=== PATIENT | female | born 1985 | race African-American/Black ===

== ENCOUNTER 2016-08-03 13:53 | Outpatient (CLI) ==
[2015-07-30 09:33] VITALS: BMI 28.3
--- NOTE | 2016-08-03 14:20 | CT ---
EXAM: Noncontrast CT examination of the brain. Comparison: 11/09/2011. Reason for study: Convulsions. FINDINGS: No acute intracranial hemorrhage, mass effect, ventricular dilatation, or territorial inf arction. The prepontine and quadrigeminal cisterns are patent. No extraaxial fluid collection. Th e calvarium is intact. The paranasal sinuses and mastoid air cells are unopacified. There is no ap parent cerebellar ectopia. IMPRESSION: No acute intracranial findings.
== END 2016-08-03 13:54 | disposition home or self-care (01) ==
LOC: RAD 13:53
PROVIDERS: ATTEND Nurse Practitioner Family
DX: R56.9 Unspecified convulsions (principal); R55 Syncope and collapse

== ENCOUNTER 2016-08-07 13:00 | Outpatient (CLI) ==
[2015-07-30 09:33] VITALS: BMI 28.3
== END 2016-08-07 13:01 | disposition home or self-care (01) ==
LOC: CAR 13:00
PROVIDERS: ATTEND Nurse Practitioner Family
DX: R56.9 Unspecified convulsions (principal); R55 Syncope and collapse

== ENCOUNTER 2016-09-07 13:50 | Outpatient (CLI) ==
[2015-07-30 09:33] VITALS: BMI 28.3
== END 2016-09-07 13:51 | disposition home or self-care (01) ==
LOC: LAB 13:50
PROVIDERS: ATTEND Nurse Practitioner Family
DX: M79.674 Pain in right toe(s) (principal)
CPT/HCPCS: 36415; 84550

== ENCOUNTER 2016-09-18 13:24 | Outpatient (CLI) ==
[2015-07-30 09:33] VITALS: BMI 28.3
--- NOTE | 2016-09-18 16:11 | MRI ---
EXAM: MRI right foot without contrast. HISTORY: Pain right foot. First toe pain. Limited range of motion.. TECHNIQUE: Using a local extremity coil on a high field strength magnet multiplanar multisequence m agnet resonance imaging performed of the right mid to forefoot without intravenous or intra-articula r gadolinium contrast.. FINDINGS: I do not have prior radiographs of the right foot for comparison at the time of this dict ation. The alignment of the right mid to forefoot shows no dislocation or joint subluxations. Intact Lisfr anc ligament fibers. Bone marrow signal intensity shows no acute fracture, stress fracture or bone erosions. Trace first metatarsal phalangeal joint effusion. Mild osteoarthrosis right great toe. Trace inter metatarsal bursitis. The dorsal extensor and plantar flexor tendons grossly intact with out tenosynovitis. Muscle bulk shows normal signal intensity. The visualized plantar fascia intact .. IMPRESSION: No acute fracture/stress fracture. Trace first metatarsal phalangeal joint effusion. Mild osteoarthrosis right great toe. Trace inter metatarsal bursitis. No bone erosions or joint subluxations. No tenosynovitis. Recommendation is obtainment and correlation with plain film radiographs of the right toes as none a re available for comparison at the time of this dictation.
== END 2016-09-18 13:25 | disposition home or self-care (01) ==
LOC: RAD 13:24
PROVIDERS: ATTEND Nurse Practitioner Family
DX: M79.671 Pain in right foot (principal)

== ENCOUNTER 2016-10-05 08:21 | Emergency (ER) ==
[2016-10-05 08:28] VITALS: BP 133/76; TEMP 97; BMI 27.6
--- NOTE | 2016-10-05 08:47 | ED.PDOC ---
General ED Provider: Dr. TIARA MARX JR Chief Complaint: Respiratory Complaint Stated Complaint: sore throat-- coughing headache--fever--body aches--chills-- 102 at home[End]97.0 101 20 98% 133/76 12/30 multi-sx cough/cold med Time Seen by Physician: 08:47 Mode of Arrival: Walk-In Information Source: Patient Exam Limitations: No limitations Primary Care Provider: GIANNI DOSS Nursing and Triage Documentation Reviewed and Agree: No Review of Systems - Review Of Systems Constitutional: Reports: Chills, Malaise, Weakness Eyes: Reports: No symptoms Ears, Nose, Mouth, Throat: Reports: Nose pain, Nose discharge, Throat pain Respiratory: Reports: Cough Cardiac: Reports: No symptoms GI: Reports: No symptoms : Reports: No symptoms Musculoskeletal: Reports: No symptoms Skin: Reports: No symptoms Neurological: Reports: No symptoms Endocrine: Reports: No symptoms Hematologic/Lymphatic: Reports: No symptoms All Other Systems: Other Past Medical History - Past Medical History Previously Healthy: Yes Endocrine: Reports: None Cardiovascular: Reports: None Respiratory: Reports: None Hematological: Reports: None Gastrointestinal: Reports: None Genitourinary: Reports: None Neuro/Psych: Reports: None Musculoskeletal: Reports: Back Pain, Joint Pain, Other Cancer: Reports: None Last Menstrual Period: aug 23 - Surgical History General Surgical History: Reports: Tubal ligation, Tonsillectomy - Family History Family History: Reports: Unknown - Social History Smoking Status: Former smoker Hx Substance Use: Yes (lortab in past) Alcohol Screening: None Physical Exam - Physical Exam Appearance: Ill-appearing, Thin Ill-appearing: Moderate Pain Distress: Moderate Eyes: SINDHU, EOMI, Conjunctiva clear ENT: Ears normal, Oropharynx normal, Rhinorrhea Neck: Supple Respiratory: Airway patent, Breath sounds clear, Breath sounds equal, Respirations nonlabored Cardiovascular: RRR, Pulses normal, No rub, No murmur GI/: Soft, Nontender, No masses, Bowel sounds normal, No Organomegaly Musculoskeletal: Normal strength, ROM intact, No edema, No calf tenderness Skin: Warm, Dry, Normal color Neurological: Sensation intact, Motor intact, Reflexes intact, Cranial nerves intact, Alert, Oriented Critical Care Note - Critical Care Note Total Time (mins): 0 Course - Course Orders, Labs, Meds: Lab Review 10/05/16 08:30 Influenza A (Rapid) Negative Influenza B (Rapid) Negative Orders Category Date Time Status MOLECULAR GROUP A STREP Stat LAB 10/05/16 08:30 Results RAPID FLU A/B Stat LAB 10/05/16 08:30 Completed RAPID STREP SCREEN [STREP SCREEN] Stat LAB 10/05/16 08:30 Results Vital Signs: Temp Pulse Resp BP Pulse Ox 10/05/16 08:22 97 F L 101 H 20 133/76 98 Departure - Departure Time of Disposition: 09:13 Disposition: HOME SELF-CARE Discharge Problem: Acute viral syndrome Instructions: Viral Syndrome (ED), Upper Respiratory Infection (ED) Condition: Good Pt referred to PMD for follow-up: Yes Additional Instructions: RECHECK PMD ONE WEEK IF NOT RESOLVED RETURN IF WORSENING IF FEVER OVER 101.0 AVOID OTHERS UNTIL NO FEVER FOR 12-24 HOURS WOULD AVOID CHILDREN UNTIL IMPROVING TYLENOL AND MOTRIN FOR FEVER OR DISCOMFORT ROBITUSSIN DM OR ROBITUSSIN AC FOR COUGH MAY USE ANY ANTIHISTAMINE DECONGESTANT FOR SYMPTOMS STREP AND FLU ARE NEGATIVE- KEFLEX IS ONLY TO BE USED FOR POSITIVE STREP TEST Prescriptions: Naproxen [Naprosyn] 500 mg PO Q12HR PRN #30 tablet PRN Reason: PAIN Cephalexin [Keflex] 500 mg PO QID #40 capsule Guaifenesin/Codeine Phosphate [Robitussin AC Syrup] 10 ml PO Q6H PRN #240 ml PRN Reason: Cough Loratadine/Pseudoephedrine [Claritin-D 12 Hour Tablet] 1 each PO BID PRN #60 tab.er.12h PRN Reason: Allergy Symptoms Allergies/Adverse Reactions: Allergies No Known Allergies Allergy (Verified 10/05/16 08:30) Home Medications: Ambulatory Orders Dextroamphetamine/Amphetamine [Adderall 30 mg Tablet] 30 mg PO 3 TIMES PER WEEK PRN 07/30/15 Clonazepam [Klonopin] 0.5 mg PO QID #120 06/01/16 Dextroamphetamine/Amphetamine [Adderall 30 Mg Tablet] 30 mg PO TID #75 Escitalopram Oxalate [Lexapro] 10 mg PO DAILY #45 06/01/16 Cephalexin [Keflex] 500 mg PO QID #40 capsule 10/05/16 Guaifenesin/Codeine Phosphate [Robitussin AC Syrup] 10 ml PO Q6H PRN #240 ml Loratadine/Pseudoephedrine [Claritin-D 12 Hour Tablet] 1 each PO BID PRN #60 tab.er.12h 10/05/16 Naproxen [Naprosyn] 500 mg PO Q12HR PRN #30 tablet 10/05/16
[2016-10-05 08:58] LABS: FLU INTERNAL QC INTERNAL QC VALID; RAPID FLU A NEGATIVE (NEGATIVE); RAPID FLU B NEGATIVE (NEGATIVE)
== END 2016-10-05 09:50 | disposition home or self-care (01) ==
LOC: ED 08:21
DX: B34.9 Viral infection, unspecified (principal); J06.9 Acute upper respiratory infection, unspecified
CPT/HCPCS: 87651; 87804; 87880; 99282

== ENCOUNTER 2017-02-13 11:46 | Emergency (ER) ==
[2017-02-13 11:51] VITALS: BP 127/88; TEMP 98.5
[2017-02-13] MEDS ORDERED: TORADOL IM STA (12:47)
[2017-02-13] MEDS ORDERED: VALIUM SYRINGE IM STA (12:47)
--- NOTE | 2017-02-13 12:55 | ED.PDOC ---
General ED Provider: Dr. DARIAN CASTILLO Chief Complaint: Tooth Problem Stated Complaint: DENTAL PAIN Time Seen by Physician: 12:15 (SEEN WITH STAFF) Mode of Arrival: Walk-In Information Source: Family Exam Limitations: No limitations Primary Care Provider: GIANNI DOSS Nursing and Triage Documentation Reviewed and Agree: Yes EENT Complaint Exam - Dental/Oral Complaint/Exam Mechanism of Injury: No known trauma Symptoms Are: Still present Timing: Constant Initial Severity: Moderate Current Severity: Moderate Character: Reports: Aching Aggravating: Reports: None Alleviating: Reports: None Associated Signs and Symptoms: Denies: Swelling, Discharge, Fever, Foul odor, Foul taste in mouth Related History: Reports: Similar episode Cardiac Risk Factors: Reports: None Dental/Oral Surgical History: Reports: None Cervical Lymphadenopathy Present: No Facial Swelling Present: No Bleeding Present: No Oropharynx Findings: Absent: Clots, Active bleeding Septal Hematoma: No Foreign Body Present: No Dysphagia Present: No Drooling Present: No Asymmetrical Tonsillar Swelling Present: No Uvula Midline: Yes Radha-tonsillar Fluctuence: No Trismus Present: No Palatal Petechiae Present: No Scarlatinaform Rash Present: No Teeth Picture: 1 - PAIN Differential Diagnoses: Other (WISDOM TOOTH ISSUE) Review of Systems - Review Of Systems Constitutional: Reports: No symptoms Eyes: Reports: No symptoms Ears, Nose, Mouth, Throat: Reports: No symptoms Respiratory: Reports: No symptoms Cardiac: Reports: No symptoms GI: Reports: No symptoms : Reports: No symptoms Musculoskeletal: Reports: No symptoms Skin: Reports: No symptoms Neurological: Reports: No symptoms Endocrine: Reports: No symptoms Hematologic/Lymphatic: Reports: No symptoms All Other Systems: Reviewed and Negative Past Medical History - Past Medical History Previously Healthy: Yes Endocrine: Reports: None Cardiovascular: Reports: None Respiratory: Reports: None Hematological: Reports: None Gastrointestinal: Reports: None Genitourinary: Reports: None Neuro/Psych: Reports: None Musculoskeletal: Reports: Back Pain, Joint Pain, Other Cancer: Reports: None Last Menstrual Period: december 25 - Surgical History General Surgical History: Reports: Tubal ligation, Tonsillectomy - Family History Family History: Reports: Unknown - Social History Smoking Status: Former smoker Hx Substance Use: No Alcohol Screening: None Physical Exam - Physical Exam Appearance: Well-appearing, No pain distress, Well-nourished Eyes: SINDHU, EOMI, Conjunctiva clear ENT: Ears normal, Nose normal, Oropharynx normal Respiratory: Airway patent, Breath sounds clear, Breath sounds equal, Respirations nonlabored Cardiovascular: RRR, Pulses normal, No rub, No murmur GI/: Soft, Nontender, No masses, Bowel sounds normal, No Organomegaly Musculoskeletal: Normal strength, ROM intact, No edema, No calf tenderness Skin: Warm, Dry, Normal color Neurological: Sensation intact, Motor intact, Reflexes intact, Cranial nerves intact, Alert, Oriented Psychiatric: Affect appropriate, Mood appropriate Critical Care Note - Critical Care Note Total Time (mins): 0 Course - Course Orders, Labs, Meds: Orders Category Date Time Status Diazepam Syringe [Valium Syringe] MEDS 02/13/17 12:47 Stat 2 mg IM ONCE STA Ketorolac Tromethamine [Toradol] MEDS 02/13/17 12:47 Stat 30 mg IM ONCE STA Medications Discontinued Medications Generic Name Dose Route Start Last Admin Trade Name Freq PRN Reason Stop Dose Admin Diazepam 2 mg 02/13/17 12:47 Valium Syringe IM 02/13/17 12:48 ONCE STA Ketorolac Tromethamine 30 mg 02/13/17 12:47 Toradol IM 02/13/17 12:48 ONCE STA Vital Signs: Temp Pulse Resp BP Pulse Ox 02/13/17 11:47 98.5 F 92 H 20 127/88 98 Departure - Departure Time of Disposition: 12:55 Disposition: HOME SELF-CARE Discharge Problem: Toothache Instructions: Toothache (ED) Condition: Good Pt referred to PMD for follow-up: Yes Additional Instructions: Please call your Family Physician as soon as possible to schedule a follow-up appointment. Prescriptions: Hydrocodone/Acetaminophen [Felton 10-325 Tablet] 1 each PO Q8HR #14 tablet Diazepam [Valium] 5 mg PO Q12H #6 tablet Allergies/Adverse Reactions: Allergies meloxicam Allergy (Verified 02/13/17 11:53) Nausea Home Medications: Ambulatory Orders Dextroamphetamine/Amphetamine [Adderall 30 mg Tablet] 30 mg PO 3 TIMES PER WEEK PRN 07/30/15 Escitalopram Oxalate [Lexapro] 10 mg PO DAILY #45 06/01/16 Naproxen [Naprosyn] 500 mg PO Q12HR PRN #30 tablet 10/05/16 Trazodone HCl 100 mg PO BEDTIME #30 11/16/16 Acetaminophen 325 mg PO Q4HR PRN 01/08/17 Clonazepam 0.5 mg PO DIRECTED PRN 01/08/17 Dextroamphetamine/Amphetamine [Adderall 30 Mg Tablet] 30 mg PO DIRECTED 01/08 Ibuprofen 200 mg PO Q6HR PRN 01/08/17 Diazepam [Valium] 5 mg PO Q12H #6 tablet 02/13/17 Hydrocodone/Acetaminophen [Felton 10-325 Tablet] 1 each PO Q8HR #14 tablet
== END 2017-02-13 13:17 | disposition home or self-care (01) ==
LOC: ED 11:46
DX: K08.89 Other specified disorders of teeth and supporting structures (principal)
CPT/HCPCS: 96372; 99282

== ENCOUNTER 2017-10-15 12:26 | Emergency (ER) ==
[2017-10-15 12:31] VITALS: BP 135/90; TEMP 96.7; BMI 31.1
[2017-10-15] MEDS ORDERED: DILAUDID 1 MG/ML SYRINGE IM STA (13:37)
--- NOTE | 2017-10-15 13:50 | ED.PDOC ---
General ED Provider: Dr. DARIAN CASTILLO Chief Complaint: Headache Stated Complaint: HEADACHE Time Seen by Physician: 12:30 (SEEN WITH MATT AT ALL TIMES NO NEURO DEFICITS NEGATIVE TRAUMA REPORTED ) Mode of Arrival: Walk-In Information Source: Patient Primary Care Provider: GIANNI DOSS Nursing and Triage Documentation Reviewed and Agree: Yes Reviewed sepsis parameters & appropriate labs ordered?: Yes System Inflammatory Response Syndrome: Not Applicable Sepsis Protocol: For patient's 13 years and over: Temp is 96.8 and below OR 101 and greater Pulse >90 BPM Resp >20/minute Acutely Altered Mental Status Are patient's symptoms suggestive of a new infection, such as: -Pneumonia -Skin, Soft Tissue -Endocarditis -UTI -Bone, Joint Infection -Implantable Device -Acute Abdominal Infection -Wound Infection -Meningitis -Blood Stream Catheter Infection -Unknown System Inflammatory Response Syndrome: Not Applicable Neurological Complaint Exam - Headache Complaint/Exam Onset: Gradual Duration: 2 DAYS DIFFUSE HEADACHE Symptoms Are: Still present Timing: Constant Episodes Lasting: Days Worst Headache Ever: No Initial Severity: Moderate Current Severity: Moderate Location: Frontal, Temporal Character: Reports: Typical headache Aggravating: Reports: None Alleviating: Reports: None Associated Signs and Symptoms: Reports: Nausea. Denies: Dizziness, Seizure, Vomiting, Sinus pressure, Fever, Neck pain, Neck stiffness, Decreased LOC, Visual changes Related History: Reports: Similar episode Related Surgical History: Reports: None SAH Risk Factors: Reports: -brazilian Meningitis Risk Factors: Reports: None SDH Risk Factors: Reports: None Temporal Arteritis Risk Factors: Reports: None Normal Head CT Within Last 12 Months: No Fundoscopic Exam: Present: Normal Findings Papilledema Present: No Temporal Artery Tenderness: Present: None Sinus Tenderness: Present: None TMJ Tenderness: Present: None Glascow Coma Scale (see protocol): 15 Meningeal Signs Positive: No Pain on Passive Flexion-Positive Kernig's: No ROM Limited In: No Limitiations Focal Weakness: Present: None Focal Sensory Loss: Present: None Nystagmus Present: No Gag Reflex Present: Yes Differential Diagnoses: Migraine Review of Systems - Review Of Systems Constitutional: Reports: No symptoms Eyes: Reports: No symptoms Ears, Nose, Mouth, Throat: Reports: No symptoms Respiratory: Reports: No symptoms Cardiac: Reports: No symptoms GI: Reports: No symptoms : Reports: No symptoms Musculoskeletal: Reports: No symptoms Skin: Reports: No symptoms Neurological: Reports: Headache Endocrine: Reports: No symptoms Hematologic/Lymphatic: Reports: No symptoms All Other Systems: Reviewed and Negative Past Medical History - Past Medical History Previously Healthy: Yes Endocrine: Reports: None Cardiovascular: Reports: None Respiratory: Reports: None Hematological: Reports: None Gastrointestinal: Reports: None Genitourinary: Reports: None Neuro/Psych: Reports: None Musculoskeletal: Reports: Back Pain, Joint Pain, Other Cancer: Reports: None Last Menstrual Period: 3 days ago - Surgical History General Surgical History: Reports: Tubal ligation, Tonsillectomy - Family History Family History: Reports: Unknown - Social History Smoking Status: Former smoker Hx Substance Use: No Alcohol Screening: None Physical Exam - Physical Exam Appearance: Well-appearing, No pain distress, Well-nourished Eyes: SINDHU, EOMI, Conjunctiva clear ENT: Ears normal, Nose normal, Oropharynx normal Respiratory: Airway patent, Breath sounds clear, Breath sounds equal, Respirations nonlabored Cardiovascular: RRR, Pulses normal, No rub, No murmur GI/: Soft, Nontender, No masses, Bowel sounds normal, No Organomegaly Musculoskeletal: Normal strength, ROM intact, No edema, No calf tenderness Skin: Warm, Dry, Normal color Neurological: Sensation intact, Motor intact, Reflexes intact, Cranial nerves intact, Alert, Oriented Psychiatric: Affect appropriate, Mood appropriate Interpretation - Radiology Interpretation Radiology Interpretation By: Radiologist Radiology Results: No acute changes Critical Care Note - Critical Care Note Total Time (mins): 0 Course - Course Hematology/Chemistry: 10/15/17 13:47 10/15/17 13:47 Orders, Labs, Meds: Lab Review 10/15/17 10/15/17 10/15/17 13:47 13:47 13:47 WBC 8.19 RBC 4.30 Hgb 12.8 Hct 38.2 MCV 88.8 MCH 29.8 MCHC 33.5 RDW Coeff of Edgar 12.2 Plt Count 264 Immature Gran % (Auto) 0.2 Neut % (Auto) 62.6 Lymph % (Auto) 23.4 Yancey % (Auto) 7.4 Eos % (Auto) 5.9 Baso % (Auto) 0.5 Immature Gran # (Auto) 0.0 Neut # (Auto) 5.1 Lymph # (Auto) 1.9 Yancey # (Auto) 0.6 Eos # (Auto) 0.5 Baso # (Auto) 0.0 Sodium 141 Potassium 4.1 Chloride 107 Carbon Dioxide 23 Anion Gap 15.1 BUN 10 Creatinine 0.79 Estimated GFR (MDRD) 101.00 BUN/Creatinine Ratio 12.65 Glucose 81 Calcium 9.7 Total Bilirubin 0.3 AST 17 ALT 12 Alkaline Phosphatase 84 Total Protein 7.8 Albumin 3.8 Globulin 4.0 Albumin/Globulin Ratio 0.95 Serum , Qual Negative Orders Category Date Time Status CBC W/ AUTO DIFF Stat LAB 10/15/17 13:47 Completed COMPREHENSIVE METABOLIC PANEL Stat LAB 10/15/17 13:47 Completed SERUM Stat LAB 10/15/17 13:47 Completed Hydromorphone HCl [Dilaudid 1 mg/ml Syringe] MEDS 10/15/17 13:37 Discontinued 0.5 mg IM ONCE STA CT HEAD W/O CONTRAST Stat RADS 10/15/17 13:35 Completed Medications Discontinued Medications Generic Name Dose Route Start Last Admin Trade Name Freq PRN Reason Stop Dose Admin Hydromorphone HCl 0.5 mg 10/15/17 13:37 10/15/17 13:43 Dilaudid 1 Mg/Ml Syringe IM 10/15/17 13:38 0.5 mg ONCE STA Administration Vital Signs: Temp Pulse Resp BP Pulse Ox 10/15/17 12:26 96.7 F L 61 18 135/90 98 Departure - Departure Time of Disposition: 15:03 Disposition: HOME SELF-CARE Discharge Problem: Headache Instructions: Acute Headache (ED) Condition: Good Pt referred to PMD for follow-up: Yes IPMP verified?: No Additional Instructions: Please call your Family Physician as soon as possible to schedule a follow-up appointment. Allergies/Adverse Reactions: Allergies meloxicam Allergy (Verified 10/15/17 12:31) Nausea Home Medications: Ambulatory Orders Ibuprofen 200 mg PO Q6HR PRN 01/08/17 Disposition Discussed With: Patient
--- NOTE | 2017-10-15 14:46 | CT ---
EXAM: CT of the head without contrast History: Headache. Comparison: Head CT 08/03/2016 Technique: Multiplanar CT images through the head were obtained without the administration of IV con trast Findings: Mucosal thickening and fluid seen within the paranasal sinuses. Mastoid air cells are jim ar in general. No acute calvarial abnormalities. Intracranially the ventricular and cisternal spaces are normal in size, shape and configuration for a patient of this age. No dominant mass or midline shift. No hydrocephalous. No acute intracranial hemorrhage or abnormal extraaxial fluid collections. Impression: 1. No acute intracranial process. 2. Paranasal sinusitis
== END 2017-10-15 15:11 | disposition home or self-care (01) ==
LOC: ED 12:26
DX: R51 Headache (principal)
CPT/HCPCS: 36415; 80053; 84703; 85025; 96372; 99283

== ENCOUNTER 2018-02-02 11:20 | Emergency (ER) | payer OTHER ==
[2018-02-02 11:30] VITALS: BP 115/74; TEMP 98.5
== END 2018-02-02 12:00 | disposition left against medical advice (07) ==
LOC: ED 11:20
DX: M54.42 Lumbago with sciatica, left side (principal)

== ENCOUNTER 2018-02-21 11:58 | Emergency (ER) ==
[2018-02-21 12:02] VITALS: BP 120/75; TEMP 98; BMI 27.4
--- NOTE | 2018-02-21 12:24 | ED.PDOC ---
General ED Provider: Dr. 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 ) Sepsis Protocol: For patient's 13 years and over: Temp is 96.8 and below OR 101 and greater Pulse >90 BPM Resp >20/minute Acutely Altered Mental Status Are patient's symptoms suggestive of a new infection, such as: -Pneumonia -Skin, Soft Tissue -Endocarditis -UTI -Bone, Joint Infection -Implantable Device -Acute Abdominal Infection -Wound Infection -Meningitis -Blood Stream Catheter Infection -Unknown Musculoskeletal Complaint Exam - Back Pain Complaint/Exam Mechanism of Injury: Reports: No known trauma Onset/Duration: 1 day Symptoms Are: Still present Timing: Constant Episodes Lasting: Hours Initial Severity: Moderate Current Severity: Moderate Location: Reports: Radiating (left leg) Character: Reports: Aching, Spasmodic Aggravating: Reports: Movements Alleviating: Reports: Rest Associated Signs and Symptoms: Denies: Swelling, Redness, Bruising, Fever, Weakness, Numbness, Tingling, Abdominal pain, Flank pain, Bladder incontinence, Bowel incontinence, Weight loss, Pain with weight bearing Related History: Reports: Similar episode TAD Risk Factors: Reports: None AAA Risk Factors: Reports: None Cauda Equina Risk Factors: Reports: None Epidural Abcess Risk Factors: Reports: None Related Surgical History: Reports: None Focal Tenderness: No Paraspinal Muscle Tenderness: No Paraspinal Muscle Spasm: No Scoliosis: No Lordosis: No Kyphosis: No SLR Test: Right Negative, Left Negative Hip Motion Testing Pain: Right Negative, Left Negative Focal Weakness: Present: None Focal Sensory Loss: Present: None Gait: Present: Normal Differential Diagnoses: Strain, Sprain Review of Systems - Review Of Systems Constitutional: Reports: No symptoms Eyes: Reports: No symptoms Ears, Nose, Mouth, Throat: Reports: No symptoms Respiratory: Reports: No symptoms Cardiac: Reports: No symptoms GI: Reports: No symptoms : Reports: No symptoms Musculoskeletal: Reports: Back pain Skin: Reports: No symptoms Neurological: Reports: No symptoms Endocrine: Reports: No symptoms Hematologic/Lymphatic: Reports: No symptoms All Other Systems: Reviewed and Negative Past Medical History - Past Medical History Previously Healthy: Yes Endocrine: Reports: None Cardiovascular: Reports: None Respiratory: Reports: None Hematological: Reports: None Gastrointestinal: Reports: None Genitourinary: Reports: None Neuro/Psych: Reports: None Musculoskeletal: Reports: Back Pain, Joint Pain, Other Cancer: Reports: None Last Menstrual Period: 02/21/18 - Surgical History General Surgical History: Reports: Tubal ligation, Tonsillectomy - Family History Family History: Reports: Unknown - Social History Smoking Status: Former smoker Hx Substance Use: No Alcohol Screening: None - Immunizations Tetanus Shot up to Date: Yes Physical Exam - Physical Exam Appearance: Well-appearing, No pain distress, Well-nourished Eyes: SINDHU, EOMI, Conjunctiva clear ENT: Ears normal, Nose normal, Oropharynx normal Respiratory: Airway patent, Breath sounds clear, Breath sounds equal, Respirations nonlabored Cardiovascular: RRR, Pulses normal, No rub, No murmur GI/: Soft, Nontender, No masses, Bowel sounds normal, No Organomegaly Musculoskeletal: Normal strength, ROM intact, No edema, No calf tenderness Skin: Warm, Dry, Normal color Neurological: Sensation intact, Motor intact, Reflexes intact, Cranial nerves intact, Alert, Oriented Psychiatric: Affect appropriate, Mood appropriate Critical Care Note - Critical Care Note Total Time (mins): 0 Course - Course Vital Signs: Temp Pulse Resp BP Pulse Ox 02/21/18 11:59 98.0 F 101 H 16 120/75 98 Departure - Departure Time of Disposition: 12:24 Disposition: HOME SELF-CARE Discharge Problem: Backache Low back pain Qualifiers: Chronicity: acute Back pain laterality: left Sciatica laterality: sciatica of left side Instructions: Sciatica (ED), Acute Low Back Pain (ED) Condition: Good Pt referred to PMD for follow-up: Yes IPMP verified?: No Additional Instructions: Please call your Family Physician as soon as possible to schedule a follow-up appointment. Allergies/Adverse Reactions: Allergies meloxicam Allergy (Verified 02/21/18 12:02) Nausea Home Medications: Ambulatory Orders 1 [No Reported Medications] 02/21/18
== END 2018-02-21 12:30 | disposition home or self-care (01) ==
LOC: ED 11:58
DX: M54.9 Dorsalgia, unspecified (principal)
CPT/HCPCS: 99282

== ENCOUNTER 2018-12-29 09:25 | Emergency (ER) ==
[2018-12-29 09:34] VITALS: BP 153/77; TEMP 97; BMI 29.2
--- NOTE | 2018-12-29 10:41 | CT ---
Exam: CT of the abdomen and pelvis without contrast History: Flank pain Technique: [address] of the abdomen and pelvis without intravascular contrast FINDINGS: The lung bases are clear. No significant liver abnormality. The adrenals, pancreas and s pleen are unremarkable. The stomach and hiatus are unremarkable.The gallbladder appears normal. Kid neys and proximal collecting system are unremarkable. There is a 2.5 mm calculus suspected within th e right mid ureter. The appendix is normal. Bowel loops demonstrate normal caliber. No inflamatory change seen in the mesentery or retroperitoneum. Pelvic genitourinary structures appear normal. Pelvic bowel loops are unremarkable. No inflammatory change in the pelvic fat. No acute abnormality of the abdominal or pelvic skeleton. Impression: 1. Right mid ureteral calculus measuring about 2.5 mm. There is no associated hydronephrosis, hydro ureter or inflammation. 2. Negative exam otherwise.
--- NOTE | 2018-12-29 10:47 | ED.PDOC ---
General ED Provider: Dr. OUSMANE OSMAN-ER Chief Complaint: Abdominal Pain Stated Complaint: corinna been hurting for 3 days Time Seen by Physician: 09:30 Mode of Arrival: Walk-In Information Source: Patient Exam Limitations: No limitations Primary Care Provider: SPEEDY SINGLETARY Nursing and Triage Documentation Reviewed and Agree: Yes Does patient meet sepsis criteria?: No System Inflammatory Response Syndrome: Not Applicable Sepsis Protocol: For patient's 13 years and over: Temp is 96.8 and below OR 101 and greater Pulse >90 BPM Resp >20/minute Acutely Altered Mental Status Are patient's symptoms suggestive of a new infection, such as: -Pneumonia -Skin, Soft Tissue -Endocarditis -UTI -Bone, Joint Infection -Implantable Device -Acute Abdominal Infection -Wound Infection -Meningitis -Blood Stream Catheter Infection -Unknown Complaint Exam - Complaint/Exam Patient Complains of: Reports: Pain Onset/Duration: 3 days Symptoms Are: Still present Timing: Constant Initial Severity: Mild Current Severity: Moderate Location of Pain: Reports: Discrete, Right, Flank Character: Reports: Colicky Associated Signs and Symptoms: Reports: Back pain, Nausea Abdominal Findings: Present: None Differential Diagnoses: Ureteral Stone Review of Systems - Review Of Systems Constitutional: Reports: No symptoms Eyes: Reports: No symptoms Ears, Nose, Mouth, Throat: Reports: No symptoms Respiratory: Reports: No symptoms Cardiac: Reports: No symptoms GI: Reports: Abdominal pain : Reports: Flank pain Musculoskeletal: Reports: No symptoms Skin: Reports: No symptoms Neurological: Reports: No symptoms Endocrine: Reports: No symptoms Hematologic/Lymphatic: Reports: No symptoms All Other Systems: Reviewed and Negative Past Medical History - Past Medical History Previously Healthy: Yes Endocrine: Reports: None Cardiovascular: Reports: None Respiratory: Reports: None Hematological: Reports: None Gastrointestinal: Reports: None Genitourinary: Reports: None Neuro/Psych: Reports: None Musculoskeletal: Reports: Back Pain, Joint Pain, Other Cancer: Reports: None Last Menstrual Period: 1 1/2 week ago - Surgical History General Surgical History: Reports: Tubal ligation, Tonsillectomy - Family History Family History: Reports: Unknown - Social History Smoking Status: Former smoker Hx Substance Use: No Alcohol Screening: None - Immunizations Tetanus Shot up to Date: No Physical Exam - Physical Exam Appearance: Well-appearing, No pain distress, Well-nourished Pain Distress: Moderate Eyes: SINDHU, EOMI, Conjunctiva clear ENT: Ears normal, Nose normal, Oropharynx normal Neck: Supple Respiratory: Airway patent, Breath sounds clear, Breath sounds equal, Respirations nonlabored Cardiovascular: RRR, Pulses normal, No rub, No murmur GI/: Soft, Nontender, No masses, Bowel sounds normal, No Organomegaly Musculoskeletal: Normal strength, ROM intact, No edema, No calf tenderness Skin: Warm, Dry, Normal color Neurological: Sensation intact, Motor intact, Reflexes intact, Cranial nerves intact, Alert, Oriented Psychiatric: Affect appropriate, Mood appropriate Interpretation - Radiology Interpretation Radiology Interpretation By: Radiologist Radiology Results: Positive Exam Interpreted: CT Scan Critical Care Note - Critical Care Note Total Time (mins): 0 Course - Course Hematology/Chemistry: 12/29/18 09:53 12/29/18 09:53 Orders, Labs, Meds: Lab Review 12/29/18 12/29/18 12/29/18 09:40 09:53 09:53 WBC 4.51 L RBC 3.89 L Hgb 11.4 L Hct 35.1 L MCV 90.2 MCH 29.3 MCHC 32.5 RDW Coeff of Edgar 12.0 Plt Count 215 Immature Gran % (Auto) 0.0 Neut % (Auto) 29.5 Lymph % (Auto) 48.1 [place] % (Auto) 9.5 Eos % (Auto) 12.2 H Baso % (Auto) 0.7 Immature Gran # (Auto) 0.0 Neut # (Auto) 1.3 L Lymph # (Auto) 2.2 [place] # (Auto) 0.4 Eos # (Auto) 0.6 Baso # (Auto) 0.0 Sodium 142.6 Potassium 3.81 Chloride 105.4 Carbon Dioxide 27.8 Anion Gap 13.21 BUN 7.9 Creatinine 0.71 Estimated GFR (MDRD) 114.00 BUN/Creatinine Ratio 11.12 Glucose 104.8 Calcium 8.75 Total Bilirubin 0.34 AST 19.3 ALT 13.0 Alkaline Phosphatase 81.5 Total Protein 7.02 Albumin 4.03 Globulin 2.99 Albumin/Globulin Ratio 1.34 Amylase 79.6 Lipase 60.2 Serum , Qual Urine Color Yellow Urine Clarity Clear Urine pH 7.0 Ur Specific [place] 1.015 Urine Protein Negative Urine Glucose (UA) Negative Urine Ketones Negative Urine Blood 2+ Urine Nitrite Negative Urine Bilirubin Negative Urine Urobilinogen 0.2 Ur Leukocyte Esterase Negative Urine Microscopic RBC 10-20 Urine Microscopic WBC 0-2 Ur Squamous Epith Cells 5-10 Urine Bacteria Trace 12/29/18 09:53 WBC RBC Hgb Hct MCV MCH MCHC RDW Coeff of Edgar Plt Count Immature Gran % (Auto) Neut % (Auto) Lymph % (Auto) [place] % (Auto) Eos % (Auto) Baso % (Auto) Immature Gran # (Auto) Neut # (Auto) Lymph # (Auto) [place] # (Auto) Eos # (Auto) Baso # (Auto) Sodium Potassium Chloride Carbon Dioxide Anion Gap BUN Creatinine Estimated GFR (MDRD) BUN/Creatinine Ratio Glucose Calcium Total Bilirubin AST ALT Alkaline Phosphatase Total Protein Albumin Globulin Albumin/Globulin Ratio Amylase Lipase Serum , Qual Negative Urine Color Urine Clarity Urine pH Ur Specific [place] Urine Protein Urine Glucose (UA) Urine Ketones Urine Blood Urine Nitrite Urine Bilirubin Urine Urobilinogen Ur Leukocyte Esterase Urine Microscopic RBC Urine Microscopic WBC Ur Squamous Epith Cells Urine Bacteria Orders Category Date Time Status Strain Urine [ED STRAIN URINE] .ONCE EMERGENCY 12/29/18 10:51 Active AMYLASE Stat LAB 12/29/18 09:53 Completed CBC W/ AUTO DIFF Stat LAB 12/29/18 09:53 Completed COMPREHENSIVE METABOLIC PANEL Stat LAB 12/29/18 09:53 Completed LIPASE Stat LAB 12/29/18 09:53 Completed SERUM Stat LAB 12/29/18 09:53 Completed URINALYSIS C & S IF INDICATED Stat LAB 12/29/18 09:[address] ABD/PEL WO RENAL STONE PROT Stat RADS 12/29/18 09:34 Completed Vital Signs: Temp Pulse Resp BP Pulse Ox 12/29/18 09:25 97.0 F L 73 20 153/77 H 98 Departure - Departure Time of Disposition: 10:46 Disposition: HOME SELF-CARE Discharge Problem: Ureteral stone Instructions: Ureteral Stones (ED) Condition: Good Pt referred to PMD for follow-up: No IPMP verified?: No Additional Instructions: strain all urine---if not passed stone by tomorrow see your pcp Prescriptions: Hydrocodone Bit/Acetaminophen [[place] 7.5-325] 1 each PO Q4HR #14 tablet Tamsulosin HCl [Flomax] 0.4 mg PO DAILY #3 cap.er.24h Allergies/Adverse Reactions: Allergies meloxicam Allergy (Verified 12/29/18 09:38) Nausea Home Medications: Ambulatory Orders Hydrocodone Bit/Acetaminophen [[place] 7.5-325] 1 each PO Q4HR #14 tablet Tamsulosin HCl [Flomax] 0.4 mg PO DAILY #3 cap.er.24h 12/29/18 Transfer Form Completed: No Disposition Discussed With: Patient
== END 2018-12-29 10:56 | disposition home or self-care (01) ==
LOC: ED 09:25
DX: N20.1 Calculus of ureter (principal)
CPT/HCPCS: 36415; 80053; 81001; 82150; 83690; 84703; 85025; 99283